=== PATIENT | female | born 1955 | race Caucasian/White ===

== ENCOUNTER → 2016-11-21 | Outpatient (CLI) | payer BC ==
[~2016-11-21] MED LIST: KEFLEX500 MG PO; VITAMIN D1000 UNIT PO; ZANTAC150 MG PO; ZYRTEC10 M2 PO
--- NOTE | ~2016-11-21 | MY11 ---
[facility] A Service of [facility] RADIOLOGY TEXT RESULTS PATIENT: DAPHNEY CONNOR LOCATION: [facility] : 57 UNIT #: [id number] AGE: [address]: Pablo Coffey MD SEX: F ORDER DR: [id number] [place] [id number] [facility]. [place], [place] [address] [id number] MR#: [id number] Acc #: [id number] NAME: DAPHNEY CONNOR : 1955 SEX: F STUDY DATE/TIME: 11/21/2016 15:42 UNIT: [facility] ROOM: STUDY DESCRIPTION: MY Mammogram Screening Dig Edmundo Attending Physician: Pablo Coffey M.D. Ordering Physician: Pablo Coffey M.D. Primary Care Physician: Pablo Coffey M.D. MEDICAL IMAGING REPORT This report is preliminary unless electronic signature is present EXAM Bilateral digital screening mammogram with CAD COMPARISON February 18, 2010, October 16, 2009, January 10, 2009, December 27, 2008. INDICATIONS Breast cancer screening. 61-year-old asymptomatic female. No personal or family history of breast cancer. FINDINGS There are scattered fibroglandular densities. There are no suspicious findings in either breast. IMPRESSION No mammographic evidence of malignancy. Continued annual screening mammography and clinical breast exam recommended. Patients over the age of 40 are entered into a reminder system with target due date for the next mammogram. A result letter will also be sent to the patient. BIRADS: 1 Negative. Dictated by... Javi Odonnell M.D. THIS IS AN ELECTRONICALLY VERIFIED REPORT Javi Odonnell M.D. at 11/23/2016 7:00 PM GUSTAVO/deila TD: 11/22/2016 11:59 JOB #: [id number] [facility] A Service [facility] RADIOLOGY TEXT RESULTS PATIENT: DAPHNEY CONNOR LOCATION: [facility] : 57 UNIT #: [id number] AGE: [address]: Pablo Coffey MD SEX: F ORDER DR: MEDICAL IMAGING REPORT COPY
== END | disposition home or self-care (01) ==
LOC: CWCC 15:25
DX: Z12.31 Encounter for screening mammogram for malignant neoplasm of breast (principal)
CPT/HCPCS: G0202

== ENCOUNTER 2017-04-16 14:12 | Inpatient (IN) | payer BC ==
[~2017-04-16] VITALS: Ht 167.6 cm; Wt 72.6 kg
--- NOTE | ~2017-04-16 | US67 ---
[facility] A Service of [facility] RADIOLOGY TEXT RESULTS PATIENT: DAPHNEY CONNOR LOCATION: [facility] : 57 UNIT #: [id number] AGE: [address]: MOAR DE LEONUJ V SEX: F ORDER DR: [id number] [facility] [address] [place], [place] [address] [id number] MR#: [id number] Acc #: [id number] NAME: DAPHNEY CONNOR. : 1955 SEX: F STUDY DATE/TIME: 04/16/2017 16:34 UNIT: [facility] ROOM: [facility] STUDY DESCRIPTION: US Gallbladder Attending Physician: Ethel Gunderson M.D. Ordering Physician: Walker Berger M.D. Primary Care Physician: Pablo Coffey M.D. MEDICAL IMAGING REPORT This report is preliminary unless electronic signature is present EXAM Gallbladder ultrasound HISTORY Abnormal lab values found on blood work yesterday. Abdominal pain. Nausea and jaundice for a week. COMPARISON STUDIES Patient had a CT scan earlier today without contrast. FINDINGS Pancreas appears normal. The liver is normal in echogenicity. The biliary and portal structures in the liver appear somewhat echogenic but I do not see any definite periportal fluid. There is no mass visible. The right kidney is normal in size at about 14 cm and appears normal. Portal vein is flowing into the liver. The common bile duct is 4 mm in diameter. The gallbladder is not visualized. IMPRESSION 1. The gallbladder is not visible on the ultrasound. It did appear to be present on the CT scan earlier today and it was contracted. 2. CT scan suggested some periportal edema but the study was without contrast, it was somewhat limited. No periportal fluid is visible on the ultrasound and there is no fluid distention. The common bile duct is 4 mm in diameter. Dictated by... Bimal Moss M.D. THIS IS AN ELECTRONICALLY VERIFIED REPORT [facility] A Service of [facility] RADIOLOGY TEXT RESULTS PATIENT: DAPHNEY CONNOR LOCATION: [facility] 226-01 : 57 UNIT #: [id number] AGE: [address]: KODI DE LEON V SEX: F ORDER DR: Bimal Moss M.D. at 04/17/2017 8:16 AM FEL/pcl TD: 04/16/2017 21:59 JOB #: [id number] MEDICAL IMAGING REPORT Page 1 of 1 COPY
--- NOTE | ~2017-04-16 | CO ---
Unit #: [id number] #: [id number] Patient: DAPHNEY GOMEZ [id number] [facility]. [place] [id number] [facility]. [place], [place] [address] [id number] I MR#: [id number] NAME: DAPHNEY GOMEZ. ROOM: 226 Age: 61 Sex: F Admission Date: 04/16/2017 : 1955 Attending Physician: Enoch Fish M.D. Primary Care Physician: Pablo Coffey M.D. Consultation Date: 04/17/2017 CONSULTATION REPORT REASON FOR CONSULTATION Jaundice. HISTORY OF PRESENT ILLNESS Ms. Gomez is a very pleasant 61-year-old white female, patient lives at home with her and works at [employer]. Over the past czlfq-ix-fskz weeks, she has had poor appetite, right upper quadrant abdominal pain, and has noticed dark orange-colored urine, and has been found to have jaundice. She had liver function studies done by Dr. Coffey in the office and was called the results and told to go to the emergency room. There is no history of diarrhea. Her appetite has generally been poor and she might have lost some weight. There is no history of overt GI bleed in the form of hemoptysis, melena, or hematochezia. There is no history of fever although she has chills. Upon admission, she was found to be jaundiced with a serum bilirubin of 13. In addition, she has also noticed some swelling over the ankles. Her past medical history, she has no significant past medical history other than allergies. Previous surgeries include, left ankle surgery. MEDICATIONS AT HOME Included Zyrtec qzot-[id number]. She also takes vitamin D and Zyrtec. ALLERGIES Codeine. FAMILY HISTORY Mother had valvular heart disease and no family history of colon, pancreatic cancer, or liver disease. SOCIAL HISTORY The patient lives with her . She smokes a pack of cigarettes daily. She does not drink alcohol except very early. 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 REVIEW OF SYSTEMS Detailed review of organ systems significant for cholecystic symptoms as mentioned above. There is history of temperature, no fever, or rigors. There is history of minimal weight loss, her appetite has generally been poor, or GI bleeding in the form of hemoptysis, melena, or hematochezia, no history of cough, expectoration or hemoptysis. No history of dysuria, hematuria, or pyuria. No history of focal seizures or extremity weakness. Unit #: [id number] #: [id number] Patient: DAPHNEY GOMEZ Rest of the review of systems is unremarkable. PHYSICAL EXAMINATION GENERAL: She is alert and oriented, and appears comfortable. VITAL SIGNS: Stable with a temperature of 98.2, pulse is 78 per minute and regular, respiratory rate is 17, and blood pressure is 130/50. HEENT: She has no pallor, there is deep icterus, no lymphadenopathy, or peripheral edema. CARDIOVASCULAR EXAMINATION: Reveals normal heart sounds and no murmurs. LUNGS: Auscultation of the lungs reveals normal breath sounds. Good air entry. ABDOMEN: Soft, there being no area of localized tenderness in the right upper quadrant of the abdomen. Liver and spleen are not palpable. Bowel sounds are normal. DIAGNOSTIC STUDIES LABORATORY: Lab evaluation shows a hemoglobin of 12.3, and platelet count of 278, white count is 8.1, serum chemistry shows a normal BUN and creatinine, and her total bilirubin is at 13.6. AST and ALT, and alkaline phosphatase are 640, 556, and 347 respectively. Most of the bilirubin is direct. Amylase and lipase are normal. IMAGING: An ultrasound of the gallbladder shows contracted gallbladder and no biliary ductal dilation. There is some periportal edema. A CT scan of the abdomen and pelvis was done and shows no biliary ductal dilation. CLINICAL IMPRESSION The most likely etiology of the patient presentation is indeed acute hepatitis. The patient does not have any risk factors for percutaneous hepatitis. The patient doesn't have any risk factors for percutaneous hepatitis, and there is also no history of drug history, or medication history. MANAGEMENT PLAN We will obtain hepatitis profile as well as IGM antibodies against herpes simplex virus, Wing-Siddiqi virus, and CMV virus. Lastly will proceed with a percutaneous medical liver biopsy as the patient may have autoimmune hepatitis. Will also obtain FAYE and smooth muscle antibody as well. Thank you very much for asking me to see this pleasant patient. Dictated by... Donis Isaacs TD: 04/18/2017 08:50 JOB #: [id number] CC: Ethel Gunderson M.D. Unit #: [id number] #: [id number] Patient: DAPHNEY GOMEZ CONSULTATION REPORT Page 1 of 1 X Jey Grullon MD CONSULTATION REPORT
--- NOTE | ~2017-04-16 | XA60 ---
[facility] A Service of [facility] RADIOLOGY TEXT RESULTS PATIENT: DAPHNEY CONNOR LOCATION: A : 57 UNIT #: [id number] AGE: [address]: KODI DE LEON V SEX: F ORDER DR: [id number] [address] [place], [place] [address] [id number] I MR#: [id number] Acc #: [id number] NAME: DAPHNEY CONNOR. : 1955 SEX: F STUDY DATE/TIME: 04/17/2017 10:25 UNIT: [facility] ROOM: [facility] STUDY DESCRIPTION: XA BX Perc Liver Attending Physician: Kodi De Leon M.D. Ordering Physician: Jey Grullon M.D. Primary Care Physician: Pablo Coffey M.D. MEDICAL IMAGING REPORT This report is preliminary unless electronic signature is present PROCEDURE Ultrasound-guided liver biopsy INDICATIONS 61-year-old female with jaundice and suspected hepatitis. MEDICATIONS 3 mg of Versed IV were administered and 50 mcg of fentanyl IV were administered. Conscious sedation time was monitored by appropriate credentialed radiology nursing staff. A total of 15 minutes of sedation time was monitored, with 10 minutes of direct enqr-mo-crwt supervision provided by Dr. Rosa. The risks, benefits and alternatives of the procedure were discussed with the patient and informed consent was obtained. In the procedure room, a time-out was performed confirming correct patient and procedure. All elements of maximum sterile-barrier technique utilized according to guidelines appropriate for the procedure. TECHNIQUE/FINDINGS Ultrasound evaluation of the right lobe of the liver was performed. The overlying skin was prepped and draped in usual sterile fashion with 2% Chlorhexidine, and 1% lidocaine was utilized to anesthetize the skin and underlying subcutaneous tissues. Next, under ultrasound guidance, a single core biopsy of the right lobe of the liver was obtained with an 18-gauge needle and sample was sent to the lab. Needle was removed and a sterile dressing was applied. No immediate complications. IMPRESSION Technically successful ultrasound-guided generic liver biopsy. Dictated by... [facility] A Service of [facility] RADIOLOGY TEXT RESULTS PATIENT: DAPHNEY CONNOR LOCATION: [place] [address] : 57 UNIT #: [id number] AGE: [address]: OMAR DE LEONUJ V SEX: F ORDER DR: William Rosa M.D. THIS IS AN ELECTRONICALLY VERIFIED REPORT William Rosa M.D. at 04/20/2017 12:15 PM ARS/luis TD: 04/17/2017 22:26 JOB #: [id number] MEDICAL IMAGING REPORT Page 1 of 1 COPY
--- NOTE | ~2017-04-16 | CT4 ---
[facility] A Service [facility] RADIOLOGY TEXT RESULTS PATIENT: DAPHNEY CONNOR LOCATION: [facility] : 57 UNIT #: [id number] AGE: [address]: OMAR DE LEONUJ V SEX: F ORDER DR: [id number] [facility] [address] [facility]. [place], [place] [address] [id number] I MR#: [id number] Acc #: [id number] NAME: DAPHNEY CONNOR. : 1955 SEX: F STUDY DATE/TIME: 04/16/2017 15:40 UNIT: [facility] ROOM: [facility] STUDY DESCRIPTION: CT Abd and Pelv Wo Cont Attending Physician: Ethel Gunderson M.D. Ordering Physician: Walker Berger M.D. Primary Care Physician: Pablo Coffey M.D. MEDICAL IMAGING REPORT This report is preliminary unless electronic signature is present EXAM CT of the abdomen and pelvis without contrast. INDICATIONS Abdominal pain, nausea x1 weeks. TECHNIQUE Axial 5 mm images were obtained through the abdomen and pelvis without Iv or oral contrast. This CT exam was performed with one or more of the following radiation dose reduction techniques: automatic exposure control, adjustment of mA and/or kV according to patient size, and iterative reconstruction. FINDINGS The lung bases are clear. There is some periportal edema visible. Indefinite biliary distention is identified. The gallbladder, I believe, is still present and normal in appearance. The spleen, pancreas, adrenal glands and kidneys are normal. The abdominal aorta is normal in size. The bowel is normal. The uterus, adnexal regions and bladder are normal. The appendix is normal. Bones are unremarkable. IMPRESSION 1. There seems to be some periportal edema visible on the images through the liver. No biliary distention is visible. 2. The gallbladder appears to be present and is slightly contracted but, otherwise, normal. 3. The appendix is normal. 4. Otherwise, the study is normal. [facility] A Service [facility] RADIOLOGY TEXT RESULTS PATIENT: DAPHNEY CONNOR LOCATION: [facility] 226-01 : 57 UNIT #: [id number] AGE: [address]: KODI DE LEON V SEX: F ORDER DR: Dictated by... Bimal Moss M.D. THIS IS AN ELECTRONICALLY VERIFIED REPORT Bimal Moss M.D. at 04/17/2017 8:16 AM FREDDY/nathen TD: 04/16/2017 20:29 JOB #: [id number] MEDICAL IMAGING REPORT Page 1 of 1 COPY
--- NOTE | ~2017-04-16 | HP ---
Unit #: [id number] #: [id number] Patient: DAPHNEY CONNOR [id number] [facility] [address] [facility]. [place], [place] [address] [id number] I MR#: [id number] NAME: DAPHNEY CONNOR. ROOM: 226 Age: 61 Sex: F Admission Date: 04/16/2017 : 1955 Attending Physician: Ethel Gunderson M.D. Primary Care Physician: Pablo Coffey M.D. HISTORY AND PHYSICAL CHIEF COMPLAINT Abnormal labs. HISTORY OF PRESENT ILLNESS The patient is a 61-year-old female with no significant past medical history who presented to the emergency department for evaluation of the above. The patient states that she has not been feeling well for the past week. She states that she has had pain in the right upper abdomen that she describes as "achy." It has been constant in nature. It is exacerbated by eating. There are no alleviating factors. She denies any similar pain. She has had nausea but no vomiting. She reports decreased appetite. She thinks she has lost an unknown amount of weight within the past week. She denies any diarrhea. Her last bowel movement was two days ago. She denies any blood in the stool or black tarry stool. No urinary symptoms. She also noted swelling in the ankles. She did have chills but no documented fever. In the emergency department, laboratory was notable for AST and ALT of 610 and 607, respectively, alkaline phosphatase 417, and total bilirubin 13.3 with 8.5 direct and 4.8 indirect. Lip[address] is 62[address] CT of the abdomen and pelvis was done and showed periportal edema with a contracted gallbladder. Right upper quadrant ultrasound was unable to visualize the gallbladder. She was given 1 liter of normal saline in the emergency department, as well as 1 mg of Dilaudid and 4 mg of Zofran. She is being admitted to [facility] for evaluation and further treatment. Of note, the patient has never had endoscopy. PAST MEDICAL HISTORY None. PAST SURGICAL HISTORY Left ankle surgery for what sounds like possibly lipoma. SOCIAL HISTORY Patient lives with her . She smokes a pack of cigarettes daily. She denies alcohol use, and there is no history of IV drug use. She works on the [employer] at [employer]. FAMILY HISTORY Notable for her mother having valvular heart disease. ALLERGIES Unit #: [id number] #: [id number] Patient: DAPHNEY CONNOR. HOME MEDICATIONS 1. Zyrtec 10 mg daily. 2. Vitamin D daily. REVIEW OF SYSTEMS A complete review of systems is negative except as indicated in the History of Present Illness. PHYSICAL EXAMINATION VITAL SIGNS: Temperature is 98, pulse 84, respirations 17, blood pressure 132/73, and oxygen saturation 100% on room air. GENERAL: Patient is a female who is awake, alert, and in no acute distress. HEENT: Head is atraumatic. Sclerae are icteric. Mucous membranes are dry. NECK: Supple. Trachea is midline. CARDIOVASCULAR: Regular rate and rhythm. LUNGS: Clear to auscultation bilaterally with no increased work of breathing. ABDOMEN: Soft. She is tender to palpation in the right upper quadrant. Bowel sounds are present in all four quadrants. EXTREMITIES: Nontender. There is bilateral pedal edema. NEUROLOGIC: Patient is awake and alert. She follows commands. PSYCHIATRIC: Mood and affect are normal. Patient is cooperative. SKIN: Skin is jaundiced. DIAGNOSTIC STUDIES LABORATORY: Comprehensive metabolic panel notable for AST and ALT of 610 and 607, respectively, alkaline phosphatase 417, total bilirubin 13.3 with 8.5 direct and 4.8 indirect, albumin 3.2, and lipase 62. Complete blood count is notable for RDW of 20.6. Urinalysis notable for 2+ leukocyte esterase, positive nitrite, 1+ protein, 1+ ketones, positive bile, 5-10 white blood cells, and 1+ bacteria with just a few squamous cells. INR is 1. IMAGING: CT of the abdomen and pelvis shows contracted gallbladder and periportal edema. Right upper quadrant ultrasound was unable to visualize the gallbladder. ASSESSMENT The patient is a 61-year-old female with: 1. Obstructive jaundice. 2. Abdominal pain. 3. Possible urinary tract infection. 4. Tobacco abuse. PLAN 1. Admit to med/surg. 2. Normal saline at 75 mL/hour. 3. N.p.o. for possible ERCP. 4. Consult Dr. Grullon regarding obstructive jaundice and need for ERCP. 5. P.r.n. Dilaudid. 6. P.r.n. Zofran. 7. Urine culture and sensitivity on urine in the lab. 8. Rocephin 1 gram IV daily. 9. Repeat labs in the morning including amylase and lipase. Unit #: [id number] #: [id number] Patient: DAPHNEY CONNOR 10. SCDs for DVT prophylaxis. 11. Additional workup and consultants based on above. 1. Dictated by Donis Cardoso/kiki TD: 04/16/2017 20:11 JOB #: [id number] HISTORY AND PHYSICAL Page 1 of 1 X Ethel Gunderson MD X HISTORY AND PHYSICAL
[2017-04-16 15:05] LABS: BASOPHIL# 0.1 X10e3 (0-0.3); BASOPHIL% 1.5 % (0-2.5); EOSINOPHIL# 0.2 X10e3 (0-0.7); EOSINOPHIL% 2.3 % (0.0-7.0); HEMATOCRIT 39.1 % (35.0-45.0); HEMOGLOBIN 13.5 gm/dL (12.0-16.0); LYMPHOCYTE# 5.1 X10e3 (1.0-3.5); MEAN CELL VOLUME 87.5 FL (83-96); MEAN CORPUSCULAR HEMOGLOBIN 30.3 PG (28-34); MEAN CORPUSCULAR HGB CONC 34.6 g/dL (30-36); MEAN PLATELET VOLUME 8.6 FL (6.5-11.5); MONOCYTE# 0.7 X10e3 (0-1.0); MONOCYTE% 8.5 % (3.0-12.0); NEUTROPHIL# 2.5 X10e3 (1.5-7.1); NEUTROPHIL% 28.7 % (40-75); PLATELET COUNT 323 X10e3 (140-420); RED BLOOD COUNT 4.47 X10e (3.90-5.30); RED CELL DISTRIBUTION WIDTH 20.6 % (11.0-15.5); WHITE BLOOD COUNT 8.7 X10e3 (4.0-10.5)
[2017-04-16 15:07] LABS: DIFF IND YES
[2017-04-16] MEDS ORDERED: VITAMIN D1000 UNIT PO (15:23)
[2017-04-16] MEDS ORDERED: ZYRTEC10 M2 PO (15:23)
[2017-04-16 15:41] LABS: ALBUMIN SERUM 3.2 g/dL (3.5-5.0); BILIRUBIN, DIRECT 8.5 mg/dL (0.0-0.2); BILIRUBIN,INDIRECT 4.8 mg/dL (0.0-0.9); BILIRUBIN,TOTAL 13.3 mg/dL (0.2-2.0); BUN/CREATININE RATIO 37.5; CREATININE SERUM 0.4 mg/dL (0.6-1.4); GLOM FILT RATE Estimated 113.2 mL/min (>60); POTASSIUM 3.7 mmol/L (3.5-5.1); PROTEIN TOTAL SERUM 7.3 g/dL (6.0-8.3)
[2017-04-16 16:00] LABS: PLATELET ESTIMATE NORMAL (NORMAL)
[2017-04-16 16:01] LABS: ANISOCYTOSIS SL; HYPOCHROMIA SL; POIKILOCYTOSIS SL; RBC NORMAL YES; TARGET CELLS SL
[2017-04-16 16:13] LABS: URINE SOURCE CLEAN CATCH
[2017-04-16 16:20] LABS: URINE APPEARANCE SL HAZY; URINE BILIRUBIN POS (NEG); URINE BLOOD NEG (NEG); URINE COLOR AMBER; URINE GLUCOSE NORM (NORM); URINE KETONE 1+ (NEG); URINE LEUKOCYTE ESTERASE 2+ (NEG); URINE NITRATE POS (NEG); URINE PROTEIN 1+ (NEG); URINE UROBILINOGEN 12 MG/DL (NORM)
[2017-04-16 16:36] LABS: CULTURE INDICATED? YES; U HYALINE CASTS AUWI 0-2 /[LPF]; URINE BACTERIA AUWI 1+ (NEGATIVE); URINE MUCUS PRESENT; URINE SQUAMOUS EPITHELIAL CELL FEW /[HPF]
[2017-04-16 16:39] LABS: PARTIAL THROMBOPLASTIN TIME 25.7 SECONDS (23.5-31.3); PROTHROMBIN TIME (PATIENT) 10.5 SECONDS (10.0-11.7)
[2017-04-17 07:27] LABS: HEMOGLOBIN 12.3 gm/dL (12.0-16.0); MEAN CELL VOLUME 88.3 FL (83-96); MEAN CORPUSCULAR HEMOGLOBIN 30.1 PG (28-34); MEAN CORPUSCULAR HGB CONC 34.1 g/dL (30-36); MEAN PLATELET VOLUME 8.6 FL (6.5-11.5); RED BLOOD COUNT 4.08 X10e (3.90-5.30); RED CELL DISTRIBUTION WIDTH 20.5 % (11.0-15.5); WHITE BLOOD COUNT 8.1 X10e3 (4.0-10.5)
[2017-04-17 07:40] LABS: PROTHROMBIN TIME (PATIENT) 10.6 SECONDS (10.0-11.7)
[2017-04-17 08:09] LABS: ALBUMIN SERUM 2.7 g/dL (3.5-5.0); ALKALINE PHOSPHATASE 347 U/L (32-92); ALT (SGPT) 556 U/L (10-40); AMYLASE 18 U/L (0-46); AST (SGOT) 640 U/L (10-42); BILIRUBIN,TOTAL 13.6 mg/dL (0.2-2.0); BLOOD UREA NITROGEN 15 mg/dL (9-23); CALCIUM SERUM 8.5 mg/dL (8.4-10.2); CARBON DIOXIDE 21 mmol/L (22-31); CHLORIDE 108 mmol/L (100-111); CREATININE SERUM <0.3 mg/dL (0.6-1.4); GLOM FILT RATE Estimated >60.0 mL/min (>60); GLUCOSE FASTING 80 mg/dL (70-110); LIPASE 49 U/L (22-51); POTASSIUM 4.6 mmol/L (3.5-5.1); PROTEIN TOTAL SERUM 6.2 g/dL (6.0-8.3); SODIUM 136 mmol/L (135-145)
[2017-04-17 16:13] LABS: THYROID STIMULATING HORMONE 1.77 uIU/ml (0.34-5.60)
[2017-04-17 16:20] LABS: FREE THYROXIN (T4) 1.8 ng/dL (0.58-1.64)
[2017-04-18 06:45] LABS: ALBUMIN SERUM 2.4 g/dL (3.5-5.0); BILIRUBIN, DIRECT 7.9 mg/dL (0.0-0.2); BILIRUBIN,INDIRECT 4.4 mg/dL (0.0-0.9); BILIRUBIN,TOTAL 12.3 mg/dL (0.2-2.0); BUN/CREATININE RATIO 33.33; CALCIUM SERUM 8.1 mg/dL (8.4-10.2); CREATININE SERUM 0.3 mg/dL (0.6-1.4); GLOM FILT RATE Estimated 124.5 mL/min (>60); POTASSIUM 3.8 mmol/L (3.5-5.1); PROTEIN TOTAL SERUM 5.5 g/dL (6.0-8.3)
[2017-04-18 07:13] LABS: BASOPHIL# 0.2 X10e3 (0-0.3); EOSINOPHIL# 0.2 X10e3 (0-0.7); EOSINOPHIL% 2.3 % (0.0-7.0); HEMATOCRIT 32.7 % (35.0-45.0); HEMOGLOBIN 11.6 gm/dL (12.0-16.0); LYMPHOCYTE# 4.4 X10e3 (1.0-3.5); LYMPHOCYTE% 62.8 % (17.0-45.0); MEAN CORPUSCULAR HEMOGLOBIN 30.8 PG (28-34); MEAN CORPUSCULAR HGB CONC 35.4 g/dL (30-36); MEAN PLATELET VOLUME 8.4 FL (6.5-11.5); MONOCYTE# 0.6 X10e3 (0-1.0); NEUTROPHIL# 1.7 X10e3 (1.5-7.1); NEUTROPHIL% 23.9 % (40-75); PLATELET COUNT 255 X10e3 (140-420); RED BLOOD COUNT 3.76 X10e (3.90-5.30); RED CELL DISTRIBUTION WIDTH 20.7 % (11.0-15.5)
[2017-04-18 07:19] LABS: DIFF IND NO
[2017-04-18] MEDS ORDERED: ZANTAC150 MG PO (16:05)
[2017-04-18] MEDS ORDERED: KEFLEX500 MG PO (16:05)
[2017-04-22 01:10] LABS: HA AB IGM (HEPPAN) Nonreactive (()); HB CORE AB IGM (HEPPAN) Reactive (Nonreactive); HB S AG (HEPPAN) Reactive (Nonreactive); HEP C AB (HEPPAN) Nonreactive (Nonreactive); HEP C AB SIGNAL TO CUTOFF 0.02 ratio (<1.00)
[2017-04-23 22:56] LABS: ANA SCREEN Negative (Negative)
== END 2017-04-18 16:42 | disposition home or self-care (01) | DRG 442 ==
LOC: CED 14:12 → CEDOF 18:35 → C2A 18:35
PROVIDERS: Emergency Medicine; Family Medicine; Internal Medicine; Internal Medicine Gastroenterology
PROC: 0FB13ZX Excision of Right Lobe Liver, Percutaneous Approach, Diagnostic (ICD-10-PCS; principal; 2017-04-17)
DX: B17.9 Acute viral hepatitis, unspecified (principal); N39.0 Urinary tract infection, site not specified; F17.210 Nicotine dependence, cigarettes, uncomplicated; Z88.5 Allergy status to narcotic agent; Z82.49 Family history of ischemic heart disease and other diseases of the circulatory system; Z80.0 Family history of malignant neoplasm of digestive organs
CPT/HCPCS: 36415; 74176; 76705; 76942; 80048; 80053; 80074; 80076; 81003; 82150; 82607; 83516; 83540; 83690; 84439; 84443; 85025; 85027; 85610; 85730; 86038; 86039; 86645; 86665; 86695; 86696; 87086; 88307; 88313; 96361; 96374; 96375; 99284; J0696; J1170; J2250; J2405; J3010

== ENCOUNTER → 2017-04-23 | Outpatient (CLI) | payer BC ==
[2017-04-23 12:08] LABS: HEMATOCRIT 36.1 % (35.0-45.0); HEMOGLOBIN 12.8 gm/dL (12.0-16.0); MEAN CORPUSCULAR HEMOGLOBIN 30.7 PG (28-34); MEAN CORPUSCULAR HGB CONC 35.3 g/dL (30-36); MEAN PLATELET VOLUME 8.6 FL (6.5-11.5); RED BLOOD COUNT 4.15 X10e (3.90-5.30); RED CELL DISTRIBUTION WIDTH 22.9 % (11.0-15.5); WHITE BLOOD COUNT 8.3 X10e3 (4.0-10.5)
[2017-04-23 12:13] LABS: PROTHROMBIN TIME (PATIENT) 10.9 SECONDS (10.0-11.7)
[2017-04-23 12:35] LABS: BUN/CREATININE RATIO 66.66; CALCIUM SERUM 9.2 mg/dL (8.4-10.2); CREATININE SERUM 0.3 mg/dL (0.6-1.4); GLOM FILT RATE Estimated 124.5 mL/min (>60); POTASSIUM 4.3 mmol/L (3.5-5.1); PROTEIN TOTAL SERUM 6.8 g/dL (6.0-8.3)
[2017-04-23 12:37] LABS: BILIRUBIN,TOTAL 19.1 mg/dL (0.2-2.0)
[2017-04-27 15:39] LABS: HEPATITIS Be ANTIGEN Reactive (())
== END | disposition home or self-care (01) ==
LOC: CLAB 11:16
PROVIDERS: Nurse Practitioner
DX: B17.9 Acute viral hepatitis, unspecified (principal); R17 Unspecified jaundice
CPT/HCPCS: 36415; 80053; 85027; 85610; 87350; 87517

== ENCOUNTER → 2017-04-28 | Outpatient (CLI) | payer BC ==
[2017-04-28 10:53] LABS: ALBUMIN SERUM 2.8 g/dL (3.5-5.0); CALCIUM SERUM 9.3 mg/dL (8.4-10.2); CREATININE SERUM 0.4 mg/dL (0.6-1.4); GLOM FILT RATE Estimated 113.2 mL/min (>60); POTASSIUM 4.9 mmol/L (3.5-5.1); PROTEIN TOTAL SERUM 6.3 g/dL (6.0-8.3)
[2017-04-28 10:54] LABS: BILIRUBIN,TOTAL 20.8 mg/dL (0.2-2.0)
== END | disposition home or self-care (01) ==
LOC: CLAB 09:27
PROVIDERS: Nurse Practitioner
DX: B19.10 Unspecified viral hepatitis B without hepatic coma (principal)
CPT/HCPCS: 36415; 80053

== ENCOUNTER → 2017-05-06 | Outpatient (CLI) | payer BC ==
[2017-05-06 11:26] LABS: HEMOGLOBIN 12.1 gm/dL (12.0-16.0); MEAN CELL VOLUME 89.2 FL (83-96); MEAN CORPUSCULAR HEMOGLOBIN 30.1 PG (28-34); MEAN CORPUSCULAR HGB CONC 33.7 g/dL (30-36); MEAN PLATELET VOLUME 8.1 FL (6.5-11.5); RED BLOOD COUNT 4.03 X10e (3.90-5.30); RED CELL DISTRIBUTION WIDTH 24.6 % (11.0-15.5); WHITE BLOOD COUNT 8.1 X10e3 (4.0-10.5)
[2017-05-06 11:39] LABS: INR 0.9; PROTHROMBIN TIME (PATIENT) 10.1 SECONDS (10.0-11.7)
[2017-05-06 12:12] LABS: ALBUMIN SERUM 2.8 g/dL (3.5-5.0); BILIRUBIN,TOTAL 9.3 mg/dL (0.2-2.0); CALCIUM SERUM 9.2 mg/dL (8.4-10.2); CREATININE SERUM 0.5 mg/dL (0.6-1.4); GLOM FILT RATE Estimated 105.2 mL/min (>60); POTASSIUM 4.6 mmol/L (3.5-5.1); PROTEIN TOTAL SERUM 6.4 g/dL (6.0-8.3)
== END | disposition home or self-care (01) ==
LOC: CLAB 10:33
PROVIDERS: Nurse Practitioner
DX: B16.9 Acute hepatitis B without delta-agent and without hepatic coma (principal); R17 Unspecified jaundice
CPT/HCPCS: 36415; 80053; 85027; 85610

== ENCOUNTER → 2017-05-25 | Outpatient (CLI) | payer BC ==
[2017-05-25 10:49] LABS: HEMATOCRIT 36.5 % (35.0-45.0); HEMOGLOBIN 12.8 gm/dL (12.0-16.0); MEAN CELL VOLUME 93.7 FL (83-96); MEAN CORPUSCULAR HEMOGLOBIN 32.8 PG (28-34); MEAN CORPUSCULAR HGB CONC 35.1 g/dL (30-36); MEAN PLATELET VOLUME 7.2 FL (6.5-11.5); RED BLOOD COUNT 3.89 X10e (3.90-5.30); RED CELL DISTRIBUTION WIDTH 16.7 % (11.0-15.5); WHITE BLOOD COUNT 8.8 X10e3 (4.0-10.5)
[2017-05-25 11:13] LABS: ALBUMIN SERUM 3.6 g/dL (3.5-5.0); BILIRUBIN,TOTAL 3.2 mg/dL (0.2-2.0); BUN/CREATININE RATIO 22.85; CALCIUM SERUM 9.7 mg/dL (8.4-10.2); CREATININE SERUM 0.7 mg/dL (0.6-1.4); GLOM FILT RATE Estimated 93.5 mL/min (>60); POTASSIUM 5.2 mmol/L (3.5-5.1); PROTEIN TOTAL SERUM 7.3 g/dL (6.0-8.3)
== END | disposition home or self-care (01) ==
LOC: CLAB 10:23
PROVIDERS: Nurse Practitioner
DX: B16.9 Acute hepatitis B without delta-agent and without hepatic coma (principal); R17 Unspecified jaundice
CPT/HCPCS: 36415; 80053; 85027